=== PATIENT | female | born 1950 | race Caucasian/White ===

== ENCOUNTER 2022-01-28 05:01 | Day surgery (SDC) | payer OTHER ==
[2022-01-24 17:04] VITALS: BMI 18.2
[2022-01-28 08:40] VITALS: TEMP 97.3
[2022-01-28 12:32] VITALS: BP 174/88; PULSE 84; RESP 20
== END 2022-01-28 13:31 | disposition home or self-care (01) ==
LOC: JRADIR 05:01
PROVIDERS: ATTEND Surgery
PROC: 0BBJ3ZX Excision of Left Lower Lung Lobe, Percutaneous Approach, Diagnostic (ICD-10-PCS; principal; 2022-01-28)
DX: R91.8 Other nonspecific abnormal finding of lung field (principal); Z53.20 Procedure and treatment not carried out because of patient's decision for unspecified reasons
CPT/HCPCS: 32408

== ENCOUNTER 2022-09-18 22:21 | Inpatient (IN) | payer OTHER ==
[2022-09-18] MEDS ORDERED: ACETAMINOPHEN 1000 MG/100 ML BAG IVPB ONE (22:43)
[2022-09-18] MEDS ORDERED: ACETAMINOPHEN INJECTION 100 ML IVPB ONE (22:48)
[2022-09-18 23:06] LABS: BASO % 0.4 % (0-2.0); EOS % 0.6 % (0-4.5); HEMATOCRIT 41.3 % (32.4-45.2); HEMOGLOBIN 14.2 GM/dL (10.7-15.3); LYMPH % 16.4 % (8-40); MCH 33.7 pg (25.7-33.7); MCHC 34.4 g/dl (32.0-36.0); MONO % 8.6 % (3.8-10.2); PLATELET COUNT 348 10^3/uL (134-434); RBC 4.22 M/mm3 (3.60-5.2); RDW 15.1 % (11.6-15.6)
[2022-09-18 23:14] LABS: INR 0.93 (0.83-1.09); PROTHROMBIN TIME (PATIENT) 10.8 SEC (9.7-13.0)
[2022-09-18 23:16] LABS: ACTIVATED PTT 33.4 SECONDS (25.2-36.5)
[2022-09-18 23:38] LABS: POTASSIUM 3.8 mmol/L (3.5-5.1)
[2022-09-18 23:39] LABS: CALCIUM 9.1 mg/dL (8.5-10.1)
[2022-09-18 23:40] LABS: ALBUMIN 3.4 g/dl (3.4-5.0); BLOOD UREA NITROGEN 6.2 mg/dL (7-18)
[2022-09-18 23:43] LABS: CREATININE 0.4 mg/dL (0.55-1.3)
[2022-09-18 23:45] LABS: BILIRUBIN,TOTAL 0.3 mg/dL (0.2-1); TOT PROT 7.4 g/dl (6.4-8.2)
[2022-09-19] MEDS ORDERED: VANCOMYCIN 1 GM in D5W (PRE-DOCKED) 1,000 MG/250 ML (RESTRICTED TO ID ONLY IVPB ONE (00:06)
[2022-09-19] MEDS ORDERED: PIPERACILLIN/TAZOB 4.5 GM 4.5 GM in DEXTROSE 5%-WATER 100 ML IVPB ONE (00:20)
[2022-09-19] MEDS ORDERED: PIPERACILLIN/TAZOB 4.5 GM 4.5 GM/100 ML BAG IVPB ONE (00:21)
[2022-09-19] MEDS ORDERED: ACETAMINOPHEN 325 MG TABLET (FP) PO PRN (02:49)
[2022-09-19] MEDS ORDERED: chlordiazePOXIDE HCL 25 MG CAPSULE PO PRN ×2 (03:16→15:04)
[2022-09-19] MEDS ORDERED: morphine CARPU-JECT 2 MG/1 ML DISP.SYRIN IVPUSH ONE (03:29)
[2022-09-19 04:37] VITALS: BMI 16.9
[2022-09-19] MEDS ORDERED: chlordiazePOXIDE HCL 25 MG CAPSULE PO SCH (05:00)
[2022-09-19] MEDS: NICOTINE 21 MG/24 HOURS TOPICAL PATCH TD SCH ×2 (07:39→10:04)
[2022-09-19] MEDS: ALBUTEROL SO4 2.5/IPRATROPIUM 0.5 INH SOL 3 ML VIAL.NEB. NEB SCH ×5 (07:39→20:10)
[2022-09-19] MEDS: HYDROmorphone HCl 2 MG/ML VIAL IVPUSH ONE ×2 (07:40→10:04)
[2022-09-19] MEDS ORDERED: PIPERACILLIN/TAZOB 4.5 GM 4.5 GM in DEXTROSE 5%-WATER 100 ML IVPB SCH (10:00)
[2022-09-19] MEDS ORDERED: LISINOPRIL 10 MG TABLET PO SCH (10:00)
[2022-09-19 11:10] LABS: HEMATOCRIT 40.3 % (32.4-45.2); HEMOGLOBIN 13.3 GM/dL (10.7-15.3); MCH 33.2 pg (25.7-33.7); MCHC 32.9 g/dl (32.0-36.0); MEAN CELL VOLUME 100.7 fl (80-96); MEAN PLT VOLUME 7.9 fl (7.5-11.1); PLATELET COUNT 314 10^3/uL (134-434); WHITE BLOOD COUNT 8.1 K/mm3 (4.0-10.0)
[2022-09-19 11:30] LABS: ALBUMIN 3.2 g/dl (3.4-5.0); BLOOD UREA NITROGEN 6.1 mg/dL (7-18); CALCIUM 8.7 mg/dL (8.5-10.1); MAGNESIUM 1.3 mg/dL (1.8-2.4)
[2022-09-19 11:33] LABS: CREATININE 0.3 mg/dL (0.55-1.3); PHOSPHOROUS 3.9 mg/dL (2.5-4.9)
[2022-09-19 11:34] LABS: BILIRUBIN,TOTAL 0.7 mg/dL (0.2-1); TOT PROT 6.6 g/dl (6.4-8.2)
[2022-09-19] MEDS ORDERED: ceFAZolin SODIUM 1 GM VIAL ONE (12:39)
[2022-09-19] MEDS ORDERED: ceFAZolin SODIUM 1 GM VIAL IVPB ONE (13:25)
[2022-09-19] MEDS ORDERED: ONDANSETRON 4 MG/2 ML VIAL IVPUSH PRN ×3 (13:40→15:37)
[2022-09-19] MEDS ORDERED: MAG HYDROX/AL HYDROX/SIMETH 30 ML UNIT-DOSE CUP PO PRN ×2 (13:40→15:04)
[2022-09-19] MEDS ORDERED: MIDAZOLAM HCL 2 MG/2 ML SINGLE DOSE VIAL ONE (13:59)
[2022-09-19] MEDS ORDERED: SUCCINYLCHOLINE CHLORIDE 200 MG/10 ML SYRINGE ONE (13:59)
[2022-09-19] MEDS ORDERED: PROPOFOL 20 ML ONE (13:59)
[2022-09-19] MEDS ORDERED: ACETAMINOPHEN INJECTION 100 ML IVPB ONE (14:04)
[2022-09-19] MEDS ORDERED: KETAMINE HCL 500 MG/10 ML VIAL ONE (14:05)
[2022-09-19] MEDS ORDERED: ROCURONIUM BROMIDE 50 MG/5 ML SYRINGE ONE (14:31)
[2022-09-19] MEDS ORDERED: NEOSTIGMINE METHYLSULFATE 0.5 MG/1 ML - 10 ML MDV ONE (14:58)
[2022-09-19] MEDS ORDERED: ALBUTEROL SO4 0.083% IH SOL 2.5 MG/3 ML VIAL.NEB. NEB ONE (15:26)
[2022-09-19] MEDS ORDERED: ALBUTEROL SO4 0.083% IH SOL 2.5 MG/3 ML VIAL.NEB. NEB PRN (15:38)
[2022-09-19] MEDS ORDERED: LACTATED RINGERS SOLUTION 1,000 ML IV SCH (15:45)
[2022-09-19] MEDS: chlordiazePOXIDE HCL 25 MG CAPSULE PO SCH ×2 (17:10→22:22)
[2022-09-19] MEDS ORDERED: SENNOSIDES/DOCUSATE COMBO (SENNA PLUS) TABLET (UD) PO SCH (22:00)
[2022-09-19] MEDS ORDERED: ATORVASTATIN CA 10 MG TABLET (FP) PO SCH (22:00)
[2022-09-19] MEDS ORDERED: CEFAZOLIN SODIUM 2 GM in DEXTROSE 5%-WATER 100 ML IVPB SCH (22:00)
[2022-09-19] MEDS: SENNOSIDES/DOCUSATE COMBO (SENNA PLUS) TABLET (UD) PO SCH (22:24)
[2022-09-19] MEDS: ATORVASTATIN CA 10 MG TABLET (FP) PO SCH (22:25)
[2022-09-19] MEDS: CEFAZOLIN SODIUM 2 GM in DEXTROSE 5%-WATER 100 ML IVPB SCH (22:26)
[2022-09-20] MEDS ORDERED: chlordiazePOXIDE HCL 25 MG CAPSULE PO SCH (05:00)
[2022-09-20] MEDS: CEFAZOLIN SODIUM 2 GM in DEXTROSE 5%-WATER 100 ML IVPB SCH (05:44)
[2022-09-20] MEDS: chlordiazePOXIDE HCL 25 MG CAPSULE PO SCH ×4 (06:25→22:33)
[2022-09-20] MEDS ORDERED: ASPIRIN 325 MG TABLET PO SCH ×2 (08:00)
[2022-09-20] MEDS: ALBUTEROL SO4 2.5/IPRATROPIUM 0.5 INH SOL 3 ML VIAL.NEB. NEB SCH ×4 (08:00→20:05)
[2022-09-20 09:03] LABS: VENOUS O2 SATURATION 64.2 % (70-80); VENOUS PCO2 52.2 mmHg (38-52); VENOUS PH 7.443 (7.310-7.410)
[2022-09-20] MEDS: LISINOPRIL 10 MG TABLET PO SCH (09:44)
[2022-09-20] MEDS: NICOTINE 21 MG/24 HOURS TOPICAL PATCH TD SCH (09:45)
[2022-09-20] MEDS: SENNOSIDES/DOCUSATE COMBO (SENNA PLUS) TABLET (UD) PO SCH ×2 (09:45→22:33)
[2022-09-20] MEDS ORDERED: MAGNESIUM 2GM/50ML STERILE WATER IVPB IVPB ONE (09:45)
[2022-09-20] MEDS: MULTIVITAMINS (DAILY MVI) TABLET (FP) PO SCH (09:45)
[2022-09-20] MEDS: PANTOPRAZOLE SODIUM 40 MG VIAL IVPUSH SCH ×2 (09:45→22:34)
[2022-09-20 09:56] LABS: BASO % 0.2 % (0-2.0); HEMATOCRIT 37.7 % (32.4-45.2); HEMOGLOBIN 12.9 GM/dL (10.7-15.3); LYMPH % 2.5 % (8-40); MCH 33.5 pg (25.7-33.7); MCHC 34.2 g/dl (32.0-36.0); MEAN CELL VOLUME 97.9 fl (80-96); MEAN PLT VOLUME 7.8 fl (7.5-11.1); MONO % 7.8 % (3.8-10.2); NEUT % 89.5 % (42.8-82.8); PLATELET COUNT 309 10^3/uL (134-434); RBC 3.85 M/mm3 (3.60-5.2); RDW 14.8 % (11.6-15.6); WHITE BLOOD COUNT 12.5 K/mm3 (4.0-10.0)
[2022-09-20] MEDS ORDERED: PANTOPRAZOLE 40 MG TABLET PO SCH ×2 (10:00)
[2022-09-20] MEDS ORDERED: MULTIVITAMINS (DAILY MVI) TABLET (FP) PO SCH (10:00)
[2022-09-20 10:10] LABS: ALBUMIN 2.8 g/dl (3.4-5.0); BLOOD UREA NITROGEN 7.7 mg/dL (7-18); CALCIUM 8.9 mg/dL (8.5-10.1); MAGNESIUM 1.6 mg/dL (1.8-2.4)
[2022-09-20 10:14] LABS: BILIRUBIN,TOTAL 0.5 mg/dL (0.2-1); CREATININE 0.4 mg/dL (0.55-1.3); TOT PROT 6.3 g/dl (6.4-8.2)
[2022-09-20] MEDS: ENOXAPARIN NA (PORCINE) 40 MG/0.4 ML DISP.SYRIN SQ SCH (12:54)
[2022-09-20] MEDS: SODIUM CHLORIDE 1,000 ML IV SCH (13:53)
[2022-09-20] MEDS: ACETAMINOPHEN 325 MG TABLET (FP) PO PRN (22:32)
[2022-09-20] MEDS: ATORVASTATIN CA 10 MG TABLET (FP) PO SCH (22:33)
[2022-09-21] MEDS ORDERED: chlordiazePOXIDE HCL 10 MG CAPSULE PO PRN ×2
[2022-09-21] MEDS ORDERED: chlordiazePOXIDE HCL 10 MG CAPSULE PO SCH ×2 (05:00)
[2022-09-21] MEDS: ALBUTEROL SO4 2.5/IPRATROPIUM 0.5 INH SOL 3 ML VIAL.NEB. NEB SCH ×4 (07:45→20:23)
[2022-09-21 08:54] LABS: BASO % 0.3 % (0-2.0); EOS % 0.1 % (0-4.5); HEMATOCRIT 35.5 % (32.4-45.2); HEMOGLOBIN 11.7 GM/dL (10.7-15.3); LYMPH % 4.7 % (8-40); MCH 33.2 pg (25.7-33.7); MCHC 32.9 g/dl (32.0-36.0); MEAN CELL VOLUME 100.6 fl (80-96); MEAN PLT VOLUME 8.2 fl (7.5-11.1); MONO % 7.8 % (3.8-10.2); NEUT % 87.1 % (42.8-82.8); PLATELET COUNT 269 10^3/uL (134-434); RBC 3.52 M/mm3 (3.60-5.2); RDW 14.9 % (11.6-15.6); WHITE BLOOD COUNT 10.1 K/mm3 (4.0-10.0)
[2022-09-21 09:20] LABS: POTASSIUM 3.9 mmol/L (3.5-5.1)
[2022-09-21] MEDS: NICOTINE 21 MG/24 HOURS TOPICAL PATCH TD SCH (09:24)
[2022-09-21] MEDS: ENOXAPARIN NA (PORCINE) 40 MG/0.4 ML DISP.SYRIN SQ SCH (09:24)
[2022-09-21] MEDS: MULTIVITAMINS (DAILY MVI) TABLET (FP) PO SCH (09:25)
[2022-09-21] MEDS: SENNOSIDES/DOCUSATE COMBO (SENNA PLUS) TABLET (UD) PO SCH ×2 (09:25→22:59)
[2022-09-21] MEDS: PANTOPRAZOLE SODIUM 40 MG VIAL IVPUSH SCH ×2 (09:25→22:59)
[2022-09-21] MEDS: LISINOPRIL 10 MG TABLET PO SCH (09:25)
[2022-09-21 09:26] LABS: ALBUMIN 2.6 g/dl (3.4-5.0); BLOOD UREA NITROGEN 5.5 mg/dL (7-18); CALCIUM 8.6 mg/dL (8.5-10.1); MAGNESIUM 1.8 mg/dL (1.8-2.4)
[2022-09-21 09:29] LABS: CREATININE 0.3 mg/dL (0.55-1.3)
[2022-09-21 09:30] LABS: PHOSPHOROUS 2.8 mg/dL (2.5-4.9)
[2022-09-21 09:32] LABS: BILIRUBIN,TOTAL 1.1 mg/dL (0.2-1); TOT PROT 5.9 g/dl (6.4-8.2)
[2022-09-21] MEDS: SODIUM CHLORIDE 1,000 ML IV SCH (09:33)
[2022-09-21 15:23] LABS: EPI CELLS 13 /uL (0-25.1); HYALINE CASTS 0 /uL (0-3.1); PH,URINE 5.5 (5.0-8.0); URINE APPEARANCE CLEAR; URINE BACTERIA 1 /uL (0-1359); URINE BILIRUBIN NEGATIVE (NEGATIVE); URINE COLOR YELLOW; URINE GLUCOSE (UA) NEGATIVE (NEGATIVE); URINE KETONE NEGATIVE (NEGATIVE); URINE LEUK ESTERASE NEGATIVE (NEGATIVE); URINE NITRITE NEGATIVE (NEGATIVE); URINE PROTEIN NEGATIVE (NEGATIVE); URINE RBC 19 /uL (0-23.9); URINE UROBILINOGEN 0.2 mg/dL (0.2-1.0); URINE WBC 10 /uL (0-25.8)
[2022-09-21] MEDS: ATORVASTATIN CA 10 MG TABLET (FP) PO SCH (22:59)
[2022-09-22] MEDS ORDERED: chlordiazePOXIDE HCL 10 MG CAPSULE PO SCH ×2 (05:00)
[2022-09-22] MEDS: ALBUTEROL SO4 2.5/IPRATROPIUM 0.5 INH SOL 3 ML VIAL.NEB. NEB SCH ×4 (07:40→19:30)
[2022-09-22] MEDS: LISINOPRIL 10 MG TABLET PO SCH (09:56)
[2022-09-22] MEDS: MULTIVITAMINS (DAILY MVI) TABLET (FP) PO SCH (09:56)
[2022-09-22] MEDS: NICOTINE 21 MG/24 HOURS TOPICAL PATCH TD SCH (09:56)
[2022-09-22] MEDS: ENOXAPARIN NA (PORCINE) 40 MG/0.4 ML DISP.SYRIN SQ SCH (09:56)
[2022-09-22] MEDS: SENNOSIDES/DOCUSATE COMBO (SENNA PLUS) TABLET (UD) PO SCH ×2 (09:56→21:44)
[2022-09-22] MEDS: PANTOPRAZOLE SODIUM 40 MG VIAL IVPUSH SCH ×2 (09:56→21:45)
[2022-09-22] MEDS: SODIUM CHLORIDE 1,000 ML IV SCH (10:47)
[2022-09-22] MEDS: ACETAMINOPHEN 325 MG TABLET (FP) PO PRN (21:44)
[2022-09-22] MEDS: ATORVASTATIN CA 10 MG TABLET (FP) PO SCH (21:45)
[2022-09-23] MEDS ORDERED: chlordiazePOXIDE HCL 10 MG CAPSULE PO ONE ×2 (05:00)
[2022-09-23] MEDS: ALBUTEROL SO4 2.5/IPRATROPIUM 0.5 INH SOL 3 ML VIAL.NEB. NEB SCH ×4 (07:20→20:10)
[2022-09-23] MEDS: LISINOPRIL 10 MG TABLET PO SCH (09:21)
[2022-09-23] MEDS: MULTIVITAMINS (DAILY MVI) TABLET (FP) PO SCH (09:21)
[2022-09-23] MEDS: SENNOSIDES/DOCUSATE COMBO (SENNA PLUS) TABLET (UD) PO SCH ×2 (09:21→21:19)
[2022-09-23] MEDS: NICOTINE 21 MG/24 HOURS TOPICAL PATCH TD SCH (09:21)
[2022-09-23] MEDS: ENOXAPARIN NA (PORCINE) 40 MG/0.4 ML DISP.SYRIN SQ SCH (09:22)
[2022-09-23] MEDS: PANTOPRAZOLE SODIUM 40 MG VIAL IVPUSH SCH (09:22)
[2022-09-23] MEDS ORDERED: traMADol HCL 50 MG TABLET PO ONE (11:10)
[2022-09-23] MEDS: ATORVASTATIN CA 10 MG TABLET (FP) PO SCH (21:19)
[2022-09-23] MEDS: ACETAMINOPHEN 325 MG TABLET (FP) PO PRN (22:56)
[2022-09-24] MEDS: ALBUTEROL SO4 2.5/IPRATROPIUM 0.5 INH SOL 3 ML VIAL.NEB. NEB SCH ×2 (07:15→11:57)
[2022-09-24 08:50] LABS: HEMATOCRIT 33.2 % (32.4-45.2); HEMOGLOBIN 10.9 GM/dL (10.7-15.3); MCH 33.5 pg (25.7-33.7); MCHC 32.9 g/dl (32.0-36.0); MEAN CELL VOLUME 101.7 fl (80-96); MEAN PLT VOLUME 7.6 fl (7.5-11.1); PLATELET COUNT 325 10^3/uL (134-434); RBC 3.27 M/mm3 (3.60-5.2); WHITE BLOOD COUNT 5.3 K/mm3 (4.0-10.0)
[2022-09-24 09:10] LABS: POTASSIUM 3.8 mmol/L (3.5-5.1)
[2022-09-24 09:13] LABS: CALCIUM 8.9 mg/dL (8.5-10.1)
[2022-09-24 09:14] LABS: BLOOD UREA NITROGEN 7.8 mg/dL (7-18)
[2022-09-24 09:19] LABS: CREATININE 0.2 mg/dL (0.55-1.3)
[2022-09-24] MEDS: LISINOPRIL 10 MG TABLET PO SCH (09:45)
[2022-09-24] MEDS: SENNOSIDES/DOCUSATE COMBO (SENNA PLUS) TABLET (UD) PO SCH ×2 (09:50→21:45)
[2022-09-24] MEDS: THIAMINE HCL 100 MG TABLET (FP) PO SCH (09:52)
[2022-09-24] MEDS: MULTIVITAMINS (DAILY MVI) TABLET (FP) PO SCH (09:52)
[2022-09-24] MEDS: PANTOPRAZOLE 40 MG TABLET PO SCH (09:52)
[2022-09-24] MEDS: FOLIC ACID 1 MG TABLET (FP) PO SCH (09:52)
[2022-09-24] MEDS: NICOTINE 21 MG/24 HOURS TOPICAL PATCH TD SCH (09:53)
[2022-09-24] MEDS: ENOXAPARIN NA (PORCINE) 40 MG/0.4 ML DISP.SYRIN SQ SCH (09:53)
[2022-09-24] MEDS: ACETAMINOPHEN 325 MG TABLET (FP) PO PRN (21:44)
[2022-09-24] MEDS: ATORVASTATIN CA 10 MG TABLET (FP) PO SCH (21:46)
[2022-09-25] MEDS: ACETAMINOPHEN 325 MG TABLET (FP) PO PRN ×2 (09:29→21:13)
[2022-09-25] MEDS: SENNOSIDES/DOCUSATE COMBO (SENNA PLUS) TABLET (UD) PO SCH ×2 (09:29→21:16)
[2022-09-25] MEDS: MULTIVITAMINS (DAILY MVI) TABLET (FP) PO SCH (09:29)
[2022-09-25] MEDS: FOLIC ACID 1 MG TABLET (FP) PO SCH (09:29)
[2022-09-25] MEDS: LISINOPRIL 10 MG TABLET PO SCH (09:29)
[2022-09-25] MEDS: NICOTINE 21 MG/24 HOURS TOPICAL PATCH TD SCH (09:29)
[2022-09-25] MEDS: THIAMINE HCL 100 MG TABLET (FP) PO SCH (09:29)
[2022-09-25] MEDS: PANTOPRAZOLE 40 MG TABLET PO SCH (09:29)
[2022-09-25] MEDS: ENOXAPARIN NA (PORCINE) 40 MG/0.4 ML DISP.SYRIN SQ SCH (09:30)
[2022-09-25] MEDS: ATORVASTATIN CA 10 MG TABLET (FP) PO SCH (21:15)
[2022-09-26] MEDS: MULTIVITAMINS (DAILY MVI) TABLET (FP) PO SCH (10:16)
[2022-09-26] MEDS: FOLIC ACID 1 MG TABLET (FP) PO SCH (10:16)
[2022-09-26] MEDS: ENOXAPARIN NA (PORCINE) 40 MG/0.4 ML DISP.SYRIN SQ SCH (10:16)
[2022-09-26] MEDS: PANTOPRAZOLE 40 MG TABLET PO SCH (10:17)
[2022-09-26] MEDS: NICOTINE 21 MG/24 HOURS TOPICAL PATCH TD SCH (10:17)
[2022-09-26] MEDS: SENNOSIDES/DOCUSATE COMBO (SENNA PLUS) TABLET (UD) PO SCH (10:17)
[2022-09-26] MEDS: LISINOPRIL 10 MG TABLET PO SCH (10:17)
[2022-09-26] MEDS: THIAMINE HCL 100 MG TABLET (FP) PO SCH (10:18)
[2022-09-26] MEDS: ACETAMINOPHEN 325 MG TABLET (FP) PO PRN (10:26)
[2022-09-26 14:46] VITALS: BP 116/58; PULSE 84; RESP 18; TEMP 98.4
== END 2022-09-26 15:16 | DRG 521 ==
LOC: JER 22:21 → JERBED 09-19 00:23 → J5S 09-19 04:08 → J2C 09-19 13:42 → J6S 09-19 16:59
PROVIDERS: ADMIT Internal Medicine; ATTEND Internal Medicine
PROC: 0SRS0JA Replacement of Left Hip Joint, Femoral Surface with Synthetic Substitute, Uncemented, Open Approach (ICD-10-PCS; principal; 2022-09-19 14:00)
DX: S72.002A Fracture of unspecified part of neck of left femur, initial encounter for closed fracture (principal); E43 Unspecified severe protein-calorie malnutrition; C34.90 Malignant neoplasm of unspecified part of unspecified bronchus or lung; Z68.1 Body mass index [BMI] 19.9 or less, adult; E87.3 Alkalosis; E87.20 Acidosis, unspecified; I10 Essential (primary) hypertension; E78.5 Hyperlipidemia, unspecified; R11.2 Nausea with vomiting, unspecified; K29.20 Alcoholic gastritis without bleeding; W19.XXXA Unspecified fall, initial encounter; Y93.9 Activity, unspecified; Y92.89 Other specified places as the place of occurrence of the external cause; Y99.9 Unspecified external cause status; F17.210 Nicotine dependence, cigarettes, uncomplicated
CPT/HCPCS: 36415; 70450-TC; 71045-TC-FY; 71250-TC; 72125-TC; 72170-TC-FY; 73502-TC-LT-FY; 73552-TC-LT-FY; 80048; 80053; 80307; 81003; 82550; 82803; 82962; 83735; 84100; 84484; 85025; 85027; 85610; 85730; 86850; 86900; 86901; 87040; 87635; 88305-TC; 88311-TC; 93005; 93010; 94010; 94640; 94760; 94761; 97116-GP; 97161-GP; 99285-25; C1776